=== PATIENT | female | born 1990 | race American Indian/Alaskan Native ===

== ENCOUNTER 2021-11-15 13:24 | Inpatient (IN) | payer SELFPAY ==
--- NOTE | 2021-11-15 14:08 | Emergency Department Report ---
Blank Doc - Documentation Documentation: 31-year-old female that presents with acute onset of headache with right facial drooping and right-sided weakness. Patient stated this started last night with a known well time of 8 PM. Patient stated went into her work and was told that she has really high blood pressure and to come to emergency room. Exam; right-sided upper and lower extremity weakness with right-sided facial drooping. 1- This is a initial triage assessment/medical screening only. Full assessment and work-up will be completed once the patient is in proper hospital gown, ED bed and in a private room setting. This initial assessment/diagnostic orders/clinical plan/ treatment(s) is/are subject to change based on pt's health status, clinical progression and re-assessment by fellow clinical providers in the ED. Further treatment and workup at subsequent clinical providers discretion. Patient/guardians urged not to elope from ED as their condition may be serious if not clinically assessed and managed. 2-code stroke initiated The patient was evaluated in the emergency department for symptoms described in the history of present illness. He/she was evaluated in the context of the global COVID-19 pandemic, which necessitated consideration that the patient might be at risk for infection with the virus that causes COVID-19. Institutional protocols and algorithms that pertain to the evaluation of patients at risk for COVID-19 are in a state of rapid change based on information released by regulatory bodies including the CDC and federal and state organizations. These policies and algorithms were followed during the patient's care in the emergency department. Please note that these policies, procedures and recommendations changed on a rapid basis.
--- NOTE | 2021-11-15 14:37 | Cat Scan Report ---
CT head/brain wo con INDICATION: CODE STROKE CALL [phone]. TECHNIQUE: Routine CT head. All CT scans at this location are performed using CT dose reduction for A KATERINA by means of automated exposure control. COMPARISON: None. FINDINGS: Intracranial: Swenson-white matter differentiation is maintained. No intracranial hemorrhage. No extra a xial collection. No hydrocephalus. No herniation. Sinuses: Paranasal sinuses and mastoid air cells are essentially clear. Orbits: Globes are intact. Calvarium: No acute fracture. IMPRESSION: 1. No evidence of acute infarction. No hemorrhage. Informed Dr Joseph at 1:33 Signer Name: Yuriy Montiel MD Signed: 11/15/2021 2:33 PM Workstation Name: [id number]
--- NOTE | 2021-11-15 16:01 | Emergency Department Report ---
HPI - General Chief Complaint: Neuro Symptoms/Deficit Time Seen by Provider: 11/15/21 14:04 - HPI HPI: MSE 1 --> 34---> reassessment 4 The patient is a 31-year-old female present with a chief complaint of right- sided numbness and weakness. The patient states last night at 20: 00 she noticed right-sided headache. The patient states she laid down to take a nap to see if it would help but when she awakened 30 minutes later headache was still present she also had numbness to her right arm and right leg. Patient states this numbness has been constant since its onset when she went to work she was noted to have an elevated blood pressure was subsequently told to come to the emergency department. Patient denied having dysarthria or dysphagia. Patient also complains of weakness in the right arm and right leg. ED Past Medical Hx - Past Medical History Previous Medical History?: No - Surgical History Past Surgical History?: No - Family History Family history: no significant - Social History Substance Use Type: None (Denies illicit drug use), Alcohol (Occasional) ED Review of Systems ROS: Stated complaint: HIGH BP/RA NUMBNESS Other details as noted in HPI Constitutional: no symptoms reported Eyes: denies: eye pain ENT: denies: throat pain Respiratory: no symptoms reported Cardiovascular: denies: chest pain Endocrine: no symptoms reported Gastrointestinal: denies: abdominal pain Genitourinary: denies: dysuria Musculoskeletal: denies: back pain Neurological: headache, weakness, paresthesias Physical Exam - Physical Exam Vital Signs: Vital Signs 11/15/21 13:59 Pulse Rate 73 Respiratory 16 Rate Blood Pressure 202/111 [Right] O2 Sat by Pulse 100 Oximetry Physical Exam: GENERAL: The patient is well-developed well-nourished female sitting in chair not appearing to be in acute distress. [] HEENT: Normocephalic. Atraumatic. Extraocular motions are intact. Patient has moist mucous membranes. NECK: Supple. Trachea midline CHEST/LUNGS: Clear to auscultation. There is no respiratory distress noted. HEART/CARDIOVASCULAR: Regular. There is no tachycardia. There is no gallop rub or murmur. ABDOMEN: Abdomen is soft, nontender. Patient has normal bowel sounds. There is no abdominal distention. SKIN: There is no rash. There is no edema. There is no diaphoresis. NEURO: The patient is awake, alert, and oriented. The patient is cooperative. Cranial nerves II through XII grossly intact with exception of slight flattening of the right nasolabial fold, cranial nerve XII (tongue deviates slightly to the right of midline) and cranial nerve XI (weak shoulder shrug) on the right. Patient is unable to raise right upper extremity to 45 degree angle. The patient has normal speech. NIHSS= 5. MUSCULOSKELETAL: There is no evidence of acute injury. ED Course Vital Signs 11/15/21 13:59 Pulse Rate 73 Respiratory 16 Rate Blood Pressure 202/111 [Right] O2 Sat by Pulse 100 Oximetry ED Medical Decision Making - Lab Data Result diagrams: 11/15/21 15:50 11/15/21 15:50 - EKG Data -: EKG Interpreted by Dc EKG shows normal: sinus rhythm Rate: normal - EKG Data When compared to previous EKG there are: previous EKG unavailable Interpretation: other (No ischemic changes seen) - Radiology Data Radiology results: report reviewed (CT head), image reviewed (CT head) [place] [address] Cat Scan Report Signed Patient: BESS MENDEZ MR #: [id number] : 1990 Acct:[id number] Age/Sex: 31 / F ADM Date: 11/15/21 Loc: ED Attending Dr: Ordering Physician: YANNI PRIETO NP Date of Service: 11/15/21 Procedure(s): CT head/brain wo con Accession Number(s): [id number] cc: YANNI PRIETO NP CT head/brain wo con INDICATION: CODE STROKE CALL [phone]. TECHNIQUE: Routine CT head. All CT scans at this location are performed using CT dose reduction for ALARA by means of automated exposure control. COMPARISON: None. FINDINGS: Intracranial: Swenson-white matter differentiation is maintained. No intracranial hemorrhage. No extra axial collection. No hydrocephalus. No herniation. Sinuses: Paranasal sinuses and mastoid air cells are essentially clear. Orbits: Globes are intact. Calvarium: No acute fracture. IMPRESSION: 1. No evidence of acute infarction. No hemorrhage. Informed Dr Prieto at 1:33 Signer Name: Yuriy Montiel MD Signed: 11/15/2021 2:33 PM Workstation Name: [id number] Transcribed By: CS Dictated By: Yuriy Montiel MD Electronically Authenticated By: Yuriy Montiel MD Signed Date/Time: 11/15/211432 DD/ 29 TD/TT: Print Cancel - Differential Diagnosis CVA, complex migraine, anxiety, conversion disorder Critical care attestation.: If time is entered above; I have spent that time in minutes in the direct care of this critically ill patient, excluding procedure time. ED Disposition Clinical Impression: Right sided weakness, Headache Disposition: ADMITTED INPATIENT Is pt being admited?: Yes Does the pt Need Aspirin: Yes Condition: Fair Time of Disposition: 18:01 (Hospitalist notified (Dr. Lopez))
[2021-11-15 16:26] LABS: Basophils % (Auto) 0.7 % (0.0-1.8); Eosinophils # (Auto) 0.1 K/mm3 (0.0-0.4); Eosinophils % (Auto) 1.6 % (0.0-4.3); Hematocrit 35.3 % (30.3-42.9); Lymphocytes % (Auto) 35.6 % (13.4-35.0); Mean Corpuscular HGB Conc 31 % (30-34); Mean Corpuscular Volume 72 fl (79-97); Monocytes # (Auto) 0.6 K/mm3 (0.0-0.8); Monocytes % (Auto) 10.9 % (0.0-7.3); Platelet Count 293 K/mm3 (140-440); Red Blood Count 4.88 M/mm3 (3.65-5.03); Red Cell Distribution Width 15.7 % (13.2-15.2)
[2021-11-15 16:39] LABS: INR 0.98 (0.87-1.13); Partial Thromboplastin Time 30.6 Sec. (24.2-36.6)
[2021-11-15 16:40] LABS: Thrombin Time 17.8 Sec. (15.1-19.6)
[2021-11-15 17:02] LABS: Creatine Kinase MB 3.4 ng/mL (0.0-4.0)
[2021-11-15 17:06] LABS: Alanine Aminotransferase 19 units/L (7-56); Albumin 4.3 g/dL (3.9-5); Blood Urea Nitrogen 10 mg/dL (7-17); Calcium 9.1 mg/dL (8.4-10.2); Hemolysis Index 2
[2021-11-15 17:14] LABS: BUN/Creatinine Ratio 14
[2021-11-15] MEDS ORDERED: ASPIRIN 325 MG TAB PO ONE (17:41)
[2021-11-15] MEDS ORDERED: KETOROLAC 30 MG/1 ML INJ IV PRN (20:04)
--- NOTE | 2021-11-15 20:54 | Cat Scan Report ---
CTA NECK WITH CONTRAST HISTORY: Stroke symptoms COMPARISON: None. TECHNIQUE: Routine CTA of the neck was performed. 3-D/MIP reformats were postprocessed. Percentage s tenosis is determined by direct quantitative measurements of diseased internal carotid artery diamete r compared with normal distal internal carotid artery reference segments or by criteria similar to NA SCET where applicable.All CT scans at this location are performed using CT dose reduction for ALARA b y means of automated exposure control CONTRAST: 100 ml of Omnipaque 350 FINDINGS: Aortic arch: No significant abnormality. Cervical vertebral arteries: No significant abnormality. Common carotid arteries: No significant abnormality. Carotid bifurcations: Normal Cervical internal carotid arteries: No significant abnormality. Additional findings: Reactive lymph nodes in the neck IMPRESSION: 1. No significant abnormality. CTA HEAD WITH CONTRAST FINDINGS: CTA Head: Intracranial vertebral arteries: No significant abnormality. Basilar artery: No significant abnormality. Posterior cerebral arteries: No significant abnormality. Intracranial internal carotid arteries: No significant abnormality. Anterior cerebral arteries: No significant abnormality. Middle cerebral arteries: No significant abnormality. Dural venous sinuses:Not optimally opacified. No significant abnormality. Additional findings: None. IMPRESSION: 1. No significant abnormality. Signer Name: Mago Perez MD Signed: 11/15/2021 8:50 PM Workstation Name: [id number]
--- NOTE | 2021-11-15 20:55 | Cat Scan Report ---
Please refer to CTA of the head Signer Name: Mago Perez MD Signed: 11/15/2021 8:50 PM Workstation Name: [email or web address]
[2021-11-15 22:43] VITALS: BP 142/88
--- NOTE | 2021-11-15 23:48 | Event Note ---
Date: 11/15/21 Patient evaluated Clinical exam is normal Power is normal in all 4 extremities No numbness. CAT scan is normal Discharge diagnosis Complex migraine Patient discharged on Fioricet and Maxalt
--- NOTE | 2021-11-16 10:56 | Electrocardiograph Report ---
[facility] Test Date: 2021-11-15 Test Time: 18:21:29 Pat Name: BESS MENDEZ Department: Room: [place] [address] Gender: F [employer] Agent: CANDY : 1990 Requested By: YANNI PRIETO Order Number: [id number] Reading MD: Anderson Lerma Measurements Intervals [place] Rate: 69 P: 1 GA: 174 QRS: 77 QRSD: 93 T: 29 QT: 419 QTc: 448 Interpretive Statements Sinus rhythm No previous ECG available for comparison Electronically Signed On 11-16-2021 10:56:28 EST by Anderson Lerma
== END 2021-11-15 21:48 | disposition home or self-care (01) | DRG 103 ==
LOC: ED 13:24 → 4A 18:02 → OBSVTOIN 18:02
PROVIDERS: ADMIT Internal Medicine; ATTEND Internal Medicine
DX: R51.9 Headache, unspecified (principal); R53.1 Weakness
CPT/HCPCS: 36415; 70450; 70496; 70498; 80053; 80320; 82550; 82553; 82962; 83735; 84484; 84703; 85025; 85610; 85670; 85730; 93005; G0378; G0480; Q9967